=== PATIENT | male | born 1965 | race American Indian/Alaskan Native ===

== ENCOUNTER 2017-02-06 07:52 | Day surgery (SDC) | payer BC ==
[2017-02-06 08:49] VITALS: RESP 19; TEMP 97.3
[2017-02-06 08:50] VITALS: BMI 23.6
[2017-02-06] MEDS ORDERED: Lactated Ringer's 500 ML IV ONE (10:44)
[2017-02-06] MEDS ORDERED: Propofol 10 mg/ml Inj (20 ML) ONE ×2 (10:45→10:46)
[2017-02-06] MEDS ORDERED: Midazolam 2 MG/2 ML VIAL ONE (10:45)
[2017-02-06 11:54] VITALS: O2SAT 98
[2017-02-06 11:56] VITALS: BP 122/73; PULSE 69
[2017-02-06] MEDS ORDERED: Albuterol 0.083% Inhal Sol (2.5 mg/3 mL) UD INH ONE (13:15)
== END 2017-02-06 12:10 | disposition home or self-care (01) ==
LOC: C.ENDO 07:52
PROVIDERS: ATTEND Internal Medicine Gastroenterology
DX: Z12.11 Encounter for screening for malignant neoplasm of colon (principal); D12.2 Benign neoplasm of ascending colon; K62.1 Rectal polyp; K64.1 Second degree hemorrhoids
CPT/HCPCS: 45380; 45385; 88305; J2250; J2704; J7120